=== PATIENT | male | born 1930 | race Caucasian/White ===

== ENCOUNTER 2016-12-26 11:16 | Inpatient (IN) | payer MEDICARE ==
[~2016-12-26] VITALS: Ht 175.2 cm; Wt 64.2 kg
--- NOTE | ~2016-12-26 | PR ---
[place], [place] PROGRESS NOTE NAME: VENU ROBLES UNIT #: [id number] ROOM: 526 DOCTOR: ARIC AUSTIN MD BIRTHDATE: [birth year] DOS: 12/27/2016 SUBJECTIVE: The patient is feeling much better. He is awake and alert, not complaining of any pain. OBJECTIVE: VITAL SIGNS: Blood pressure 88/48, heart rate of 106 beats per minute, breathing 18 times per minute, temperature 99 degrees Fahrenheit. GENERAL APPEARANCE: The patient is alert and oriented x 3, in no visible distress. HEENT AND NECK: Exam within normal limits. CARDIOVASCULAR SYSTEM: Heart rate is regular in rate and rhythm. S1 and S2 normally audible. LUNGS: Clear to auscultation. ABDOMEN: Soft, nontender. No obvious organomegaly. Bowel sounds are present. EXTREMITIES: Without significant cyanosis or edema. Generalized weakness. IMPRESSION: 1. The patient with leukemia and neutropenia for end of life care as discussed with the patient and family. The patient is feeling much better with treatment with antibiotics and his fever has resolved. 2. Hypotension. Blood pressure is sustained somewhat on the lower side, but the patient is completely asymptomatic and alert and oriented and also has started eating better. 3. 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 4. Sepsis, fever, infection, improving with antibiotics. ARIC AUSTIN MD CM:PNTRANS [id number] ARIC AUSTIN MD 12/28/16 0316 interface
--- NOTE | ~2016-12-26 | WRIGHTHP ---
[place], [place] PATIENT HISTORY AND PHYSICAL EXAM NAME: VENU ROBLES [facility] #: [id number] UNIT #: [id number] ROOM: 526 DOCTOR: ARIC AUSTIN MD BIRTHDATE: [birth year] DOS: 12/26/2016 HISTORY OF PRESENT ILLNESS: The patient is an 86-year-old gentleman with a past medical history of benign essential hypertension, hypertriglyceridemia, recent pneumonia, COPD, generalized anxiety disorder, chronic constipation, hypothyroidism. The patient was brought into the Emergency Department from [facility] with complaints of fever, lethargy and generalized failure to thrive. The patient was found to be severely anemic with a hemoglobin of 6.5. The patient's durable power of assistant prosecuting attorney and family wants the patient to be kept comfortable only. They agreed to admission to the hospital for further treatment, but no blood transfusion. Apparently, the patient's health has been progressively declining. No complaints of any chest pain, no shortness breath, no GI or urinary symptoms. PAST HISTORY: The patient has history of major depression, recurrent, moderate, history of leukemia, history of mixed hyperlipidemia, adult failure to thrive. SYSTEMS REVIEW: LUNGS: No increasing shortness breath, recently treated for pneumonia. GASTROINTESTINAL: No nausea, vomiting, diarrhea or constipation. CARDIOVASCULAR SYSTEM: No chest pains or palpitations. Impression, the patient brought in with weakness, lethargy, and high fever. The patient's family and power of assistant prosecuting attorney do not want him to be treated for his severe anemia and want him kept comfortable only. FAMILY HISTORY: Noncontributory. SOCIAL HISTORY: The patient is residing at [facility]. ALLERGIES: No known drug allergies. PHYSICAL EXAMINATION: GENERAL: Awake, alert, uncomfortable, but in no visible distress, very weak, unable to provide much history. VITAL SIGNS: Blood pressure 102/82, heart rate of 106 beats per minute, breathing 20 times per minute, temperature 101.3 degrees Fahrenheit. IMPRESSION: The patient presenting with sepsis, high grade fever, possible pneumonia and advanced severe failure to thrive along with leukopenia and neutropenia. Situation was discussed with patient's family members, his son and daughter and they want me to keep the patient comfortable only and no blood transfusions. I will start the patient on treatment with IV Zosyn and follow him closely. 1. Neutropenic fever. We will treat with antibiotics. The source of infection is not obvious. I will get an ID consult. 2. Leukemia with neutropenia for end-of-life care. 3. 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 The patient not to be transfused with blood on family and power assistant prosecuting attorney request. The patient wants his family to take the decisions. [place], [place] PATIENT HISTORY AND PHYSICAL EXAM NAME: VENU ROBLES UNIT #: [id number] ROOM: 526 DOCTOR: ARIC AUSTIN MD BIRTHDATE: [birth year] 4. Sepsis, fever, and infection to be treated with antibiotics. For pain control and comfort care, the patient was started on morphine concentrate. ARIC AUSTIN MD CM:HISPHYS:PATIENT HISTORY AND PHYSICAL EXAMINATION 180 01 ARIC AUSTIN MD 12/26/161901 interface
--- NOTE | ~2016-12-26 | EKG ---
[place], [place] ELECTROCARDIOGRAM REPORT NAME: VENU ROBLES UNIT #: [id number] ROOM: 526 DOCTOR: ASHKAN CASTELLON MD BIRTHDATE: [birth year] DOS: 12/26/2016 TIME: 11:54 a.m. Sinus tachycardia at rate 104. Low voltage in extremity leads. Nonspecific T-wave abnormality. Abnormal electrocardiogram. ASHKAN CASTELLON MD CM:EKGRPT:ELECTROCARDIOGRAM REPORT 13 55 ASHKAN CASTELLON MD
[~2016-12-26 11:16] MED LIST: ATENOLOL25 MG PO; SIMVASTATIN40 MG PO
[2016-12-26 11:25] VITALS: BP 102/54
[2016-12-26 12:09] LABS: HEMATOCRIT 20.3 % (42.0-52.0); HEMOGLOBIN 6.5 g/dl (14.0-18.0); MEAN CELL VOLUME 121.6 fl (80.0-94.0); MEAN CORPUSCULAR HGB 38.9 pg (27.0-31.0); MEAN PLATELET VOLUME 9.5 fl (9.6-12.3); PLATELET COUNT AUTOMATED 131 10*3/uL (130-400); RED BLOOD COUNT 1.67 10*6/uL (4.50-5.90); RED CELL DISTRI WIDTH 15.4 % (0-14.5)
[2016-12-26 12:14] LABS: WHITE BLOOD COUNT 1.3 10*3/uL (4.8-10.8)
[2016-12-26 12:16] LABS: INTERNATIONAL NORM RATIO 1.1 (2.0-3.5); PROTHROMBIN TIME 11.4 SECONDS (9.0-12.4)
[2016-12-26 12:24] LABS: ALBUMIN 2.9 gm/dl (3.1-4.5); BILIRUBIN, TOTAL 0.4 mg/dl (0.2-1.0); POTASSIUM 4.6 mmol/L (3.5-5.1)
[2016-12-26 12:30] LABS: EOSINOPHIL # 0.2 10*3/uL (0-0.4); EOSINOPHILS 17 % (1-4); LYMPHOCYTE # 0.4 10*3/uL (1.3-4.4); MONOCYTE # 0.1 10*3/uL (0.1-1.0); NEUTROPHIL # 0.6 10*3/uL (2.3-7.9); NEUTROPHILS 43 % (47-73); TOTAL CELLS COUNTED 100 #CELLS
[2016-12-26 12:35] LABS: BLASTS 4 % (0-0); HYPOCHROMIA SLIGHT; PLATELET SUFFICIENCY NORMAL (NORMAL); ROULEAUX SLIGHT
[2016-12-26 12:37] LABS: TROPONIN I 0.137 ng/ml (<0.045)
[2016-12-26 13:05] LABS: BILIRUBIN NEGATIVE (NEGATIVE); BLOOD 2+ (NEGATIVE); CLARITY SL CLOUDY (CLEAR); COLOR YELLOW (YELLOW); GLUCOSE NEGATIVE (NEGATIVE); KETONE NEGATIVE (NEGATIVE); LEUKO ESTERASE NEGATIVE (NEGATIVE); NITRITE NEGATIVE (NEGATIVE); PROTEIN 2+ (NEGATIVE); UROBILINOGEN 0.2 E.U./dl (0.2-1.0)
[2016-12-26 13:10] VITALS: BP 106/60
[2016-12-26 13:18] LABS: BACTERIA TRACE; HYALINE CAST 21-30; URINE REFLEX COMMENT YES (NO)
[2016-12-26 14:05] LABS: LA>2 REFLEX 2 HR DRAW NOW
[2016-12-26 14:16] VITALS: BP 119/60
[2016-12-26] MEDS ORDERED: DUONEB 3 MG/3 ML3 M1 INH (14:52)
[2016-12-26] MEDS ORDERED: NITROSTAT0.4 MG SL (14:53)
[2016-12-26] MEDS ORDERED: MORPHINE S20 MG/5 ML SL (14:54)
[2016-12-26] MEDS ORDERED: REMERON15 M2 PO (14:55)
[2016-12-26] MEDS ORDERED: SYNTHROID25 MCG PO (14:55)
[2016-12-26] MEDS ORDERED: PEPCID20 MG PO (14:55)
[2016-12-26] MEDS ORDERED: BUSPAR5 MG PO (14:55)
[2016-12-26] MEDS ORDERED: DOCUSATE SODIU100 M2 PO (14:56)
[2016-12-26] MEDS ORDERED: ACETAMINOPHEN325 M2 PO (14:56)
[2016-12-26] MEDS ORDERED: MAALOX MAXIMUM355 ML PO (14:59)
[2016-12-26 16:00] VITALS: BP 102/82
[2016-12-26 20:00] VITALS: BP 101/55
[2016-12-27] VITALS: BP 106/54
[2016-12-27 08:00] VITALS: BP 80/42
[2016-12-27 08:30] VITALS: BP 88/48
[2016-12-27 16:00] VITALS: BP 95/49
[2016-12-27 20:00] VITALS: BP 108/46
[2016-12-28 08:00] VITALS: BP 103/43
[2016-12-28 16:00] VITALS: BP 116/61
[2016-12-28] MEDS ORDERED: MORPHINE S20 MG/1 ML SL (16:37)
== END 2016-12-28 18:53 | disposition other institution (70) | DRG 872 ==
LOC: ED 11:16 → 5E 13:18 → EDHOLD 13:18 → 5E 13:38
PROVIDERS: Student in an Organized Health Care Education/Training Program
DX: A41.9 Sepsis, unspecified organism (principal); I95.9 Hypotension, unspecified; D70.9 Neutropenia, unspecified; C95.90 Leukemia, unspecified not having achieved remission; D63.0 Anemia in neoplastic disease; R65.20 Severe sepsis without septic shock; R62.7 Adult failure to thrive; I10 Essential (primary) hypertension; E78.1 Pure hyperglyceridemia; F41.1 Generalized anxiety disorder; K59.09 Other constipation; E03.9 Hypothyroidism, unspecified; Z87.01 Personal history of pneumonia (recurrent)

== ENCOUNTER 2016-12-30 13:09 | Emergency (ER) | payer MEDICARE ==
[~2016-12-30 13:09] MED LIST changes: +ACETAMINOPHEN325 M2 PO; +BUSPAR5 MG PO; +DOCUSATE SODIU100 M2 PO; +DUONEB 3 MG/3 ML3 M1 INH; +MAALOX MAXIMUM355 ML PO; +MORPHINE S20 MG/1 ML SL; +MORPHINE S20 MG/5 ML SL; +NITROSTAT0.4 MG SL; +PEPCID20 MG PO; +REMERON15 M2 PO; +SYNTHROID25 MCG PO
[2016-12-30 13:50] LABS: MEAN CELL VOLUME 120.8 fl (80.0-94.0); MEAN CORPUSCULAR HGB 38.3 pg (27.0-31.0); MEAN CORPUSCULAR HGB CONC 31.7 g/dl (33.0-37.0); MEAN PLATELET VOLUME 9.3 fl (9.6-12.3); PLATELET COUNT AUTOMATED 124 10*3/uL (130-400); RED BLOOD COUNT 1.49 10*6/uL (4.50-5.90)
[2016-12-30 13:56] LABS: HEMOGLOBIN 5.7 g/dl (14.0-18.0); WHITE BLOOD COUNT 1.4 10*3/uL (4.8-10.8)
[2016-12-30 13:58] LABS: PROTHROMBIN TIME 11.1 SECONDS (9.0-12.4)
[2016-12-30 14:04] LABS: ALBUMIN 2.6 gm/dl (3.1-4.5); BILIRUBIN, TOTAL 0.4 mg/dl (0.2-1.0); MAGNESIUM 2.1 mg/dL (1.5-2.1); POTASSIUM 3.9 mmol/L (3.5-5.1); TOTAL PROTEIN 7.5 gm/dL (6.4-8.2)
[2016-12-30 14:06] LABS: TROPONIN I 0.06 ng/ml (<0.045)
[2016-12-30 14:40] LABS: BASOPHILS 1 % (0-1); BLASTS 2 % (0-0); EOSINOPHIL # 0.3 10*3/uL (0-0.4); EOSINOPHILS 19 % (1-4); LYMPHOCYTE # 0.7 10*3/uL (1.3-4.4); MONOCYTE # 0.1 10*3/uL (0.1-1.0); NEUTROPHIL # 0.3 10*3/uL (2.3-7.9); NEUTROPHILS 21 % (47-73); TOTAL CELLS COUNTED 100 #CELLS
[2016-12-30 14:41] LABS: PLATELET SUFFICIENCY LOW (NORMAL); POLYCHROMASIA SLIGHT
[2016-12-30 14:42] LABS: TOXIC GRANULATION SLIGHT
[2016-12-30 15:01] VITALS: BP 114/61
== END 2016-12-30 15:57 | disposition home or self-care (01) ==
LOC: ED 13:09
PROVIDERS: Student in an Organized Health Care Education/Training Program
DX: S09.90XA Unspecified injury of head, initial encounter (principal); W18.30XA Fall on same level, unspecified, initial encounter; Y93.89 Activity, other specified; Y92.9 Unspecified place or not applicable; Y99.9 Unspecified external cause status